=== PATIENT | female | born 1975 | race American Indian/Alaskan Native ===

== ENCOUNTER 2017-10-21 10:05 | Emergency (ER) | payer MEDICAID, OTHER ==
[2017-10-21 10:28] VITALS: BP 113/74
--- NOTE | 2017-10-21 11:02 | Emergency Department Report ---
Chief Complaint: Chest Pain Stated Complaint: CHEST PAIN Time Seen by Provider: 10/21/17 10:58 - HPI History of Present Illness: Plan 2-year-old female with a history of diabetes controlled with medication presents complaining of right-sided chest pain 3 days. Patient states chest pain started 3 days ago while she was doing methadone at home. Patient states pain is localized to her right sided upper chest, feels like pressure pain. She also admits sharp intermittent pains in her breast that started 3 days ago as well. She denies fevers/chills shortness of breath/cough or any other problems - ROS Review of Systems: Noted in the HPI - Exam Vital Signs: Vital Signs 10/21/17 10:25 Temperature 98.6 F Pulse Rate 82 Respiratory 18 Rate Blood Pressure 113/74 O2 Sat by Pulse 99 Oximetry Physical Exam: GENERAL: Alert and oriented x3, no apparent distress, Normal Gait, atraumatic. HEAD: Head is normocephalic and a-traumatic. LUNGS: Symetrical with respiration, No wheezing, no rales or crackles, CTAB. HEART: S1, S2 present, regular rate and rhythm without murmur, no rubs, no gallops. Non tender to palpation SKIN: Warm and dry, No lesions, No ulceration or induration present. MSE screening note: Focused history and physical exam performed. Due to findings the following was ordered: ED Medical Decision Making - Medical Decision Making 42-year-old female in no distress. Chest pain protocol ordered patients Patient will be seen by main ED Physician. If all labs normal, Consider sending patient to fast track. ED Disposition for MSE Condition: Stable
[2017-10-21 11:20] LABS: Eosinophils % (Auto) 1.3 % (0.0-4.3)
[2017-10-21 11:28] LABS: Anion Gap 21 mmol/L; BUN/Creatinine Ratio 16; Blood Urea Nitrogen 8 mg/dL (7-17); Calcium 8.7 mg/dL (8.4-10.2); Carbon Dioxide 20 mmol/L (22-30); Glucose 320 mg/dL (65-100); Sodium 137 mmol/L (137-145); White Blood Count 5.7 K/mm3 (4.5-11.0)
[2017-10-21 11:29] LABS: Basophils % (Auto) 0.4 % (0.0-1.8); Hematocrit 43.2 % (30.3-42.9); Hemoglobin 14.3 gm/dl (10.1-14.3); Mean Corpuscular HGB Conc 33 % (30-34); Mean Corpuscular Hemoglobin 27 pg (28-32); Mean Corpuscular Volume 81 fl (79-97); Platelet Count 173 K/mm3 (140-440); Red Blood Count 5.34 M/mm3 (3.65-5.03); Red Cell Distribution Width 13.2 % (13.2-15.2)
== END 2017-10-21 11:00 | disposition left against medical advice (07) ==
LOC: ED 10:05
DX: R07.9 Chest pain, unspecified (principal); Z53.21 Procedure and treatment not carried out due to patient leaving prior to being seen by health care provider
CPT/HCPCS: 36415; 80048; 84484; 85025; 93005; 93010